=== PATIENT | male | born 1995 | race Two or more races ===

== ENCOUNTER 2024-09-16 11:00 | Emergency (ER) | payer MEDICAID, OTHER ==
[~2024-09-16] VITALS: Ht 162.6 cm; Wt 78.0 kg
[2024-09-16 11:04] VITALS: O2SAT 100
[2024-09-16 11:11] VITALS: BP 165/102; PULSE 93; RESP 12; TEMP 97.9; O2SAT 97
== END 2024-09-16 12:37 | disposition home or self-care (01) ==
LOC: ER 11:06
DX: J02.9 Acute pharyngitis, unspecified (principal)
CPT/HCPCS: 99281